=== PATIENT | female | born 1965 | race Caucasian/White ===

== ENCOUNTER → 2016-09-03 | Outpatient (CLI) | payer BC ==
[~2016-09-03] MED LIST: CYCLOBENZAPRINE10 MG PO; MULTIVITAMIN1 CTB PO; NAPROSYN500 MG PO; PRAVACHOL20 MG PO; PREDNISONE10 MG PO; PREDNISONE20 M1 PO; TOPROL XL25 MG PO; VITAMIN C1000 M2 PO
== END | disposition home or self-care (01) ==
LOC: MAMMO 16:09
DX: Z12.31 Encounter for screening mammogram for malignant neoplasm of breast (principal)

== ENCOUNTER → 2018-01-22 | Outpatient (CLI) | payer BC | END | disposition home or self-care (01) | LOC: MAMMO 07:39 | DX: Z12.31 Encounter for screening mammogram for malignant neoplasm of breast (principal) ==

== ENCOUNTER → 2018-03-27 | Day surgery (SDC) | payer BC ==
[~2018-03-27] VITALS: Ht 152.4 cm; Wt 72.6 kg
--- NOTE | ~2018-03-27 | PROC NOTE ---
[place], [place] PROCEDURE NOTE NAME: YARELY DUNHAM [facility] #: [id number] UNIT #: [id number] ROOM: DOCTOR: MELVI CAMPOVERDE MD BIRTHDATE: [birth year] DOS: 03/27/2018 PROCEDURE: 1. Esophagogastroduodenoscopy and biopsy. 2. Colonoscopy and polypectomy. INDICATIONS: GERD, diarrhea and colon cancer screening. An informed consent was obtained from the patient after indication of procedures, alternatives, and potential complications were explained to her. PROCEDURE MEDICATION: Sedation was administered by Anesthesiology Department. Scope used was upper endoscopy, Olympus diagnostic adult upper endoscope GIF-180, depth of insertion was to descending duodenum. With the colonoscopy, the scope used was Olympus pediatric colonoscope variable stiffness GIF-180, depth of insertion was to the cecum, which was identified by the usual landmarks, appendiceal orifice, ileocecal valve and triangular fold, in addition to transillumination in the right lower quadrant. FINDINGS: After adequate sedation, the patient was placed in left lateral decubitus position. Upper endoscopy was performed first. The scope was introduced under direct visualization through the upper esophageal sphincter into the esophagus. Esophageal mucosa showed evidence of erosive esophagitis grade 2 with no ulcers or strictures. Lower esophageal sphincter was identified at 36 cm from incisors. Stomach was then intubated. Gastric mucosa inspected. Severe gastritis was seen. No discrete ulcers or active bleeding. A JAYRO test was performed from the gastric antrum and body. Retroflexed views in the fundus showed a grade 1 sliding hiatal hernia. The pylorus was intubated easily. The duodenal bulb and descending duodenum were within normal range. The scope was then withdrawn after the stomach was decompressed. We then proceeded with the colonoscopy. Rectal examination showed a diminished sphincter tone and no external hemorrhoids. Scope was introduced into the rectum and then advanced to the cecum with no difficulty. The prep was adequate. A 6 mm proximal right transverse colon polyp was detected and was removed with a cold snare. The remaining colon mucosa appeared otherwise normal with no evidence of diverticula, ulcerations or obstructing lesions. The random biopsies were obtained from the right and left colon to rule out microscopic colitis. Retroflexed views in the rectum showed no evidence of internal hemorrhoids. The scope was then withdrawn after the rectum was decompressed. The patient tolerated the procedure well. IMPRESSION: 1. Moderate erosive esophagitis. 2. Small hiatal hernia. 3. Gastritis, JAYRO test performed. 4. Small transverse colon polyp, removed. 5. Normal colon mucosa otherwise, random biopsies obtained. PLAN: We will review the histopathology and JAYRO test results and treat the [place], [place] PROCEDURE NOTE NAME: YARELY DUNHAM UNIT #: [id number] ROOM: DOCTOR: GILLES DOVER,MELVI BIRTHDATE: [birth year] patient accordingly. Office followup will be scheduled in 2-3 weeks. The patient was advised to avoid aspirin and NSAIDs for the next 10 days. MELVI CAMPOVERDE MD CM:PROCNOTE:PROCEDURE NOTE [id number] MELVI CAMPOVERDE MD
[2018-03-27 07:17] VITALS: BP 116/73
[2018-03-27 08:43] VITALS: BP 103/57
[2018-03-27 08:58] VITALS: BP 119/77
[2018-03-27 09:13] VITALS: BP 127/57
== END | disposition home or self-care (01) ==
LOC: SDC 03-24 08:00
DX: K63.5 Polyp of colon (principal); K63.89 Other specified diseases of intestine; K29.70 Gastritis, unspecified, without bleeding; K44.9 Diaphragmatic hernia without obstruction or gangrene; K22.10 Ulcer of esophagus without bleeding; K21.9 Gastro-esophageal reflux disease without esophagitis; M19.90 Unspecified osteoarthritis, unspecified site; Z79.899 Other long term (current) drug therapy; Z80.0 Family history of malignant neoplasm of digestive organs; Z98.890 Other specified postprocedural states

== ENCOUNTER 2019-02-05 19:00 | Emergency (ER) | payer BC ==
[~2019-02-05] VITALS: Ht 152.4 cm; Wt 73.5 kg
[2019-02-05] MEDS ORDERED: CEFDINIR300 MG PO (19:31)
[2019-02-05] MEDS ORDERED: MEDROL DOSEPAK4 MG PO (19:46)
== END 2019-02-05 19:56 | disposition home or self-care (01) ==
LOC: ED 19:00
DX: H92.03 Otalgia, bilateral (principal); J32.9 Chronic sinusitis, unspecified; K08.89 Other specified disorders of teeth and supporting structures; Z79.899 Other long term (current) drug therapy; Z79.2 Long term (current) use of antibiotics

== ENCOUNTER 2019-05-08 14:51 | Emergency (ER) | payer BC ==
[~2019-05-08] VITALS: Ht 170.1 cm; Wt 81.6 kg
[~2019-05-08 14:51] MED LIST changes: +CEFDINIR300 MG PO; +MEDROL DOSEPAK4 MG PO
[2019-05-08 15:27] LABS: BASO # 0.1 10*3/uL (0.0-0.1); BASO % 0.6 % (0.0-1.0); EOS # 0.4 10*3/uL (0.0-0.4); EOS % 4.8 % (1.0-4.0); HEMATOCRIT 43.5 % (37.0-47.0); HEMOGLOBIN 14.6 g/dl (12.0-16.0); LYMPH # 2.7 10*3/uL (1.3-4.4); LYMPH % 34.4 % (27.0-41.0); MEAN CELL VOLUME 89.7 fl (81.0-99.0); MEAN CORPUSCULAR HGB 30.1 pg (27.0-31.0); MEAN CORPUSCULAR HGB CONC 33.6 g/dl (33.0-37.0); MEAN PLATELET VOLUME 10.4 fl (9.6-12.3); MONO # 0.8 10*3/uL (0.1-1.0); MONO % 10.6 % (3.0-9.0); NEUT # 3.9 10*3/uL (2.3-7.9); NEUT % 49.5 % (47.0-73.0); PLATELET COUNT AUTOMATED 226 10*3/uL (130-400); RED BLOOD COUNT 4.85 10*6/uL (4.10-5.10); RED CELL DISTRI WIDTH 12.5 % (0-14.5); WHITE BLOOD COUNT 7.9 10*3/uL (4.8-10.8)
[2019-05-08 15:37] LABS: INTERNATIONAL NORM RATIO 0.9 (2.0-3.5)
[2019-05-08 15:44] LABS: ALBUMIN 3.9 gm/dl (3.1-4.5); ALKALINE PHOSPHATASE 131 U/L (45-117); BUN 12 mg/dl (7-24); CHLORIDE 108 mmol/L (98-107); POTASSIUM 3.6 mmol/L (3.5-5.1); SGOT/AST 54 IU/L (3-35); SGPT/ALT 122 U/L (12-78); SODIUM 141 mmol/L (136-145); TOTAL PROTEIN 7.6 gm/dL (6.4-8.2)
[2019-05-08 15:48] LABS: TROPONIN I < 0.015 ng/ml (<0.045)
[2019-05-08] MEDS ORDERED: PRILOSEC20 M1 PO (17:26)
== END 2019-05-08 18:13 | disposition home or self-care (01) ==
LOC: ED 14:51
PROVIDERS: Emergency Medicine
DX: R07.89 Other chest pain (principal); K21.9 Gastro-esophageal reflux disease without esophagitis; Z79.899 Other long term (current) drug therapy; Z79.2 Long term (current) use of antibiotics

== ENCOUNTER → 2019-05-19 | Outpatient (CLI) | payer BC ==
[~2019-05-19] MED LIST changes: +PRILOSEC20 M1 PO
[2019-05-19 16:10] LABS: BILIRUBIN NEGATIVE (NEGATIVE); BLOOD TRACE-INTACT (NEGATIVE); CLARITY CLOUDY (CLEAR); COLOR YELLOW (YELLOW); GLUCOSE NEGATIVE (NEGATIVE); KETONE NEGATIVE (NEGATIVE); LEUKO ESTERASE 2+ (NEGATIVE); NITRITE NEGATIVE (NEGATIVE); UROBILINOGEN 0.2 E.U./dl (0.2-1.0)
[2019-05-19 16:15] LABS: BASO # 0.1 10*3/uL (0.0-0.1); BASO % 0.8 % (0.0-1.0); EOS # 0.3 10*3/uL (0.0-0.4); EOS % 3.3 % (1.0-4.0); HEMATOCRIT 43.3 % (37.0-47.0); HEMOGLOBIN 14.5 g/dl (12.0-16.0); LYMPH # 2.3 10*3/uL (1.3-4.4); LYMPH % 29.6 % (27.0-41.0); MEAN CELL VOLUME 90.6 fl (81.0-99.0); MEAN CORPUSCULAR HGB 30.3 pg (27.0-31.0); MEAN CORPUSCULAR HGB CONC 33.5 g/dl (33.0-37.0); MEAN PLATELET VOLUME 10.9 fl (9.6-12.3); MONO # 0.8 10*3/uL (0.1-1.0); MONO % 10.1 % (3.0-9.0); NEUT # 4.4 10*3/uL (2.3-7.9); NEUT % 55.9 % (47.0-73.0); PLATELET COUNT AUTOMATED 254 10*3/uL (130-400); RED BLOOD COUNT 4.78 10*6/uL (4.10-5.10); RED CELL DISTRI WIDTH 12.6 % (0-14.5); RETICULOCYTE % 1.52 % (0.50-2.50); WHITE BLOOD COUNT 7.8 10*3/uL (4.8-10.8)
[2019-05-19 16:17] LABS: WBC TNTC wbc/hpf (0-5)
[2019-05-19 16:47] LABS: ALBUMIN 3.7 gm/dl (3.1-4.5); ALKALINE PHOSPHATASE 128 U/L (45-117); BUN 12 mg/dl (7-24); CHLORIDE 107 mmol/L (98-107); CHOLESTEROL 170 mg/dL (<200); CREATININE 0.84 mg/dL (0.55-1.02); GAMMA GLUTAMYL TRANSPEPTIDASE 23 U/L (5-55); HDL CHOLESTEROL 40 mg/dl (40-60); IRON 58 ug/dL (50-170); LDL CHOLESTEROL 66 mg/dL (9-159); POTASSIUM 3.9 mmol/L (3.5-5.1); SGOT/AST 54 IU/L (3-35); SGPT/ALT 123 U/L (12-78); SODIUM 142 mmol/L (136-145); T3 UPTAKE 40 % (31-39); THYROXINE (T4) TOTAL 12.6 ug/dl (4.8-13.9); TOTAL IRON BINDING CAPACITY 342 ug/dl (250-450); TOTAL PROTEIN 7.5 gm/dL (6.4-8.2); TRIGLYCERIDES 321 mg/dl (<150); URIC ACID 6.2 mg/dL (2.6-6.0); VLDL CHOLESTEROL 64 mg/dL (6-40)
[2019-05-19 16:53] LABS: THYROID STIM HORMONE (HS) 0.075 uIU/ml (0.358-4.75)
[2019-05-19 17:25] LABS: FERRITIN 179.2 ng/mL (10.0-291.0); VITAMIN D, 25-HYDROXY 33.7 ng/mL (30-100)
[2019-05-20 08:08] LABS: RHEUMATOID ARTHRITIS FACTOR <10.0 IU/mL (0.0-13.9)
[2019-05-20 14:08] LABS: ANTI-DSDNA ANTIBODIES 096339 <1 IU/mL (0-9)
== END | disposition home or self-care (01) ==
LOC: LAB 15:40
PROVIDERS: Family Medicine
DX: E55.9 Vitamin D deficiency, unspecified (principal); R53.83 Other fatigue; R79.89 Other specified abnormal findings of blood chemistry

== ENCOUNTER → 2019-05-27 | Outpatient (CLI) | payer BC ==
--- NOTE | 2019-05-27 12:45 | NUR ---
INFORMED CONSENT SIGNED FOR CARDIOLYTE STRESS TEST WITH DR. SAPP. RESTING EKG, NSR, HR 74, BP 114/80. COMPLETED 8:00 OF NEEMA PROTOCOL STRESS TEST COMPLETING 2:00 STAGE III, 3.4MH/14% GRADE. PEAK HEART RATE OF 162 ACHIEVED WHICH IS 97% PREDICTED MAXIMUM AND A PEAK BP OF 160/20. PVC'S NOTED WITH NO ST CHANGES. TEST TERMINATED D/T FATIGUE. HAS A GOOD EXERCISE TOLERANCE. LAST RECOVERY HR 99, BP 138/70. WAITING NUCLEAR SCANNING IN STABLE CONDITION.
== END | disposition home or self-care (01) ==
LOC: CARD 00:11
DX: R07.89 Other chest pain (principal); R00.2 Palpitations; R53.83 Other fatigue

== ENCOUNTER → 2019-06-29 | Outpatient (CLI) | payer BC | END | disposition home or self-care (01) | LOC: US 09:03 | DX: D26.1 Other benign neoplasm of corpus uteri (principal); K76.0 Fatty (change of) liver, not elsewhere classified; J90 Pleural effusion, not elsewhere classified; R10.2 Pelvic and perineal pain ==

== ENCOUNTER → 2020-07-06 | Outpatient (CLI) | payer OTHER ==
[2020-07-06 16:32] LABS: BASO # 0.1 10*3/uL (0.0-0.1); BASO % 0.8 % (0.0-1.0); EOS # 0.3 10*3/uL (0.0-0.4); EOS % 3.6 % (1.0-4.0); HEMATOCRIT 43.9 % (37.0-47.0); LYMPH # 2.4 10*3/uL (1.3-4.4); LYMPH % 31.4 % (27.0-41.0); MEAN CELL VOLUME 88.5 fl (81.0-99.0); MEAN CORPUSCULAR HGB 29.8 pg (27.0-31.0); MEAN CORPUSCULAR HGB CONC 33.7 g/dl (33.0-37.0); MEAN PLATELET VOLUME 10.5 fl (9.6-12.3); MONO # 0.7 10*3/uL (0.1-1.0); MONO % 8.8 % (3.0-9.0); NEUT # 4.2 10*3/uL (2.3-7.9); NEUT % 55.3 % (47.0-73.0); PLATELET COUNT AUTOMATED 244 10*3/uL (130-400); RED BLOOD COUNT 4.96 10*6/uL (4.10-5.10); RED CELL DISTRI WIDTH 12.8 % (0-14.5); RETICULOCYTE % 1.17 % (0.50-2.50); WHITE BLOOD COUNT 7.6 10*3/uL (4.8-10.8)
[2020-07-06 16:37] LABS: BILIRUBIN Negative (Negative); BLOOD Negative (Negative); CLARITY Clear (Clear); COLOR Yellow (Yellow); GLUCOSE Negative (Negative); KETONE Negative (Negative); LEUKO ESTERASE 1+ (Negative); NITRITE Negative (Negative); SPECIFIC GRAVITY >= 1.030 (1.001-1.030); UROBILINOGEN 0.2 E.U./dl (0.0-1.0)
[2020-07-06 16:49] LABS: BACTERIA TRACE; EPITHELIAL CELLS 21-30
[2020-07-06 17:04] LABS: ALBUMIN 3.7 gm/dl (3.1-4.5); ALKALINE PHOSPHATASE 124 U/L (45-117); BUN 17 mg/dl (7-24); CHLORIDE 108 mmol/L (98-107); CHOLESTEROL 191 mg/dL (<200); CREATININE 0.79 mg/dL (0.55-1.02); GAMMA GLUTAMYL TRANSPEPTIDASE 17 U/L (5-55); HDL CHOLESTEROL 47 mg/dl (40-60); IRON 59 ug/dL (50-170); LDL CHOLESTEROL 100 mg/dL (9-159); SGOT/AST 30 IU/L (3-35); SGPT/ALT 63 U/L (12-78); SODIUM 143 mmol/L (136-145); TOTAL IRON BINDING CAPACITY 355 ug/dl (250-450); TOTAL PROTEIN 7.7 gm/dL (6.4-8.2); TRIGLYCERIDES 221 mg/dl (<150); VLDL CHOLESTEROL 44 mg/dL (6-40)
[2020-07-06 17:08] LABS: THYROID STIM HORMONE (HS) 0.025 uIU/ml (0.358-4.75)
[2020-07-06 17:32] LABS: VITAMIN D, 25-HYDROXY 34.1 ng/mL (30-100)
[2020-07-06 17:33] LABS: FERRITIN 97.8 ng/mL (10.0-291.0)
== END | disposition home or self-care (01) ==
LOC: LAB 16:09
PROVIDERS: ATTEND Family Medicine
DX: E78.5 Hyperlipidemia, unspecified (principal); R53.83 Other fatigue; R79.89 Other specified abnormal findings of blood chemistry; E55.9 Vitamin D deficiency, unspecified

== ENCOUNTER → 2022-01-29 | Outpatient (CLI) | payer OTHER | END | disposition home or self-care (01) | LOC: MAMMO 01-28 06:37 | PROVIDERS: ATTEND Family Medicine | DX: Z12.31 Encounter for screening mammogram for malignant neoplasm of breast (principal) ==

== ENCOUNTER → 2022-05-21 | Outpatient (CLI) | payer OTHER ==
[2022-05-21 16:32] LABS: BILIRUBIN Negative (Negative); BLOOD Negative (Negative); CLARITY Clear (Clear); COLOR Yellow (Yellow); GLUCOSE Negative (Negative); KETONE Negative (Negative); LEUKO ESTERASE 2+ (Negative); NITRITE Negative (Negative); PH 5.5 (4.5-8.0); SPECIFIC GRAVITY 1.015 (1.001-1.030); UROBILINOGEN 0.2 E.U./dl (0.0-1.0)
[2022-05-21 16:33] LABS: HEMATOCRIT 42.1 % (37.0-47.0); MEAN CELL VOLUME 89.2 fl (81.0-99.0); MEAN CORPUSCULAR HGB 29.9 pg (27.0-31.0); MEAN CORPUSCULAR HGB CONC 33.5 g/dl (33.0-37.0); MEAN PLATELET VOLUME 10.4 fl (9.6-12.3); PLATELET COUNT AUTOMATED 214 10*3/uL (130-400); RED BLOOD COUNT 4.72 10*6/uL (4.10-5.10); RED CELL DISTRI WIDTH 12.8 % (0-14.5); RETICULOCYTE % 1.28 % (0.50-2.50); WHITE BLOOD COUNT 8.1 10*3/uL (4.8-10.8)
[2022-05-21 16:41] LABS: RBC 0-2 rbc/hpf (0-2)
[2022-05-21 16:42] LABS: BACTERIA 1+
[2022-05-21 16:51] LABS: ALKALINE PHOSPHATASE 111 U/L (46-116); BUN 8 mg/dl (9-23); CHLORIDE 105 mmol/L (98-107); CHOLESTEROL 183 mg/dL (<200); GAMMA GLUTAMYL TRANSPEPTIDASE 21 U/L (0-73); LDL CHOLESTEROL 107 mg/dL (9-159); POTASSIUM 3.9 mmol/L (3.4-5.1); SGPT/ALT 44 U/L (10-49); T3 UPTAKE 21.8 % (22.4-36.7); THYROID STIM HORMONE (HS) 0.008 uIU/ml (0.550-4.780); THYROXINE (T4) TOTAL 10.9 ug/dl (4.5-10.9); TOTAL PROTEIN 7.1 gm/dL (6.0-8.0); TRIGLYCERIDES 174 mg/dl (<150); URIC ACID 5.8 mg/dL (3.1-7.8)
[2022-05-21 17:04] LABS: BASOPHILS 1 % (0-1); PLATELET SUFFICIENCY NORMAL (NORMAL); TOTAL CELLS COUNTED 100 #CELLS
[2022-05-21 17:15] LABS: VITAMIN D, 25-HYDROXY 27.5 ng/mL (30-100)
[2022-05-22 08:07] LABS: TOTAL PROTEIN, SERUM 6.7 g/dL (6.0-8.5)
[2022-05-22 14:07] LABS: A/G RATIO 1.2 (0.7-1.7); ALBUMIN 3.6 g/dL (2.9-4.4); ALPHA-1-GLOBULIN 0.2 g/dL (0.0-0.4); ALPHA-2-GLOBULIN 0.8 g/dL (0.4-1.0); ANTI-DSDNA ANTIBODIES <1 IU/mL (0-9); BETA GLOBULIN 1.2 g/dL (0.7-1.3); GAMMA GLOBULIN 0.9 g/dL (0.4-1.8); GLOBULIN, TOTAL 3.1 g/dL (2.2-3.9); M-SPIKE Not Observed g/dL (Not Observed)
== END | disposition home or self-care (01) ==
LOC: LAB 16:12
PROVIDERS: ATTEND Family Medicine
DX: R79.89 Other specified abnormal findings of blood chemistry (principal); R53.83 Other fatigue; E78.5 Hyperlipidemia, unspecified; E55.9 Vitamin D deficiency, unspecified

== ENCOUNTER → 2022-06-07 | Outpatient (CLI) | payer OTHER | END | disposition home or self-care (01) | LOC: MRI 00:58 | PROVIDERS: ATTEND Family Medicine | DX: J34.89 Other specified disorders of nose and nasal sinuses (principal); R51.9 Headache, unspecified; H53.40 Unspecified visual field defects ==

== ENCOUNTER → 2022-06-28 | Outpatient (CLI) | payer OTHER | END | disposition home or self-care (01) | LOC: US 14:37 | PROVIDERS: ATTEND Family Medicine | DX: E04.9 Nontoxic goiter, unspecified (principal); E07.9 Disorder of thyroid, unspecified ==

== ENCOUNTER 2023-03-05 15:02 | Emergency (ER) | payer OTHER ==
[~2023-03-05] VITALS: Ht 152.4 cm; Wt 70.8 kg
[2023-03-05 15:41] LABS: BASO % 0.3 % (0.0-1.0); EOS # 0.3 10*3/uL (0.0-0.4); EOS % 3.3 % (1.0-4.0); HEMATOCRIT 42.7 % (37.0-47.0); LYMPH # 2.6 10*3/uL (1.3-4.4); LYMPH % 29.4 % (27.0-41.0); MEAN CELL VOLUME 86.4 fl (81.0-99.0); MEAN CORPUSCULAR HGB 29.4 pg (27.0-31.0); MEAN PLATELET VOLUME 9.8 fl (9.6-12.3); MONO # 0.8 10*3/uL (0.1-1.0); MONO % 8.9 % (3.0-9.0); NEUT # 5.1 10*3/uL (2.3-7.9); NEUT % 57.9 % (47.0-73.0); PLATELET COUNT AUTOMATED 266 10*3/uL (130-400); RED BLOOD COUNT 4.94 10*6/uL (4.10-5.10); RED CELL DISTRI WIDTH 12.8 % (0-14.5); WHITE BLOOD COUNT 8.8 10*3/uL (4.8-10.8)
[2023-03-05 15:54] LABS: ACT PARTIAL THROMBO TIME 27.3 SECONDS (20.0-32.1)
[2023-03-05 16:03] LABS: ALKALINE PHOSPHATASE 123 U/L (46-116); BUN 13 mg/dl (9-23); CHLORIDE 107 mmol/L (98-107); LIPASE 58 U/L (12-53); POTASSIUM 4.4 mmol/L (3.4-5.1); SGPT/ALT 29 U/L (5-49); TOTAL PROTEIN 7.3 gm/dL (6.0-8.0)
== END 2023-03-05 17:54 | disposition home or self-care (01) ==
LOC: ED 15:02
PROVIDERS: Emergency Medicine
DX: R07.89 Other chest pain (principal); R00.2 Palpitations; Z98.890 Other specified postprocedural states

== ENCOUNTER → 2023-04-01 | Outpatient (CLI) | payer OTHER ==
[2023-04-01 17:10] LABS: T3 UPTAKE 29.9 % (22.4-36.7); THYROXINE (T4) TOTAL 10.9 ug/dl (4.5-10.9)
== END | disposition home or self-care (01) ==
LOC: LAB 16:17 → MAMMO 17:00
PROVIDERS: ATTEND Family Medicine
DX: Z12.31 Encounter for screening mammogram for malignant neoplasm of breast (principal); R79.89 Other specified abnormal findings of blood chemistry; R53.83 Other fatigue; E78.5 Hyperlipidemia, unspecified

== ENCOUNTER 2023-08-03 10:50 | Emergency (ER) | payer OTHER ==
[~2023-08-03] VITALS: Ht 152.4 cm; Wt 75.3 kg
[2023-08-03] MEDS ORDERED: PROPYLTHIOURACI50 M1 PO (11:31)
[2023-08-03] MEDS ORDERED: PROPRANOLOL HYD60 MG PO (11:32)
[2023-08-03] MEDS ORDERED: PREDNISONE10 MG PO (11:40)
[2023-08-03] MEDS ORDERED: methylPREDNISolone sod succ 125 MG VIAL IM ONE (11:40)
== END 2023-08-03 11:55 | disposition home or self-care (01) ==
LOC: ED 10:50
DX: L23.7 Allergic contact dermatitis due to plants, except food (principal); E03.9 Hypothyroidism, unspecified; Z98.890 Other specified postprocedural states

== ENCOUNTER → 2023-12-18 | Outpatient (CLI) | payer OTHER ==
[~2023-12-18] MED LIST changes: +PROPRANOLOL HYD60 MG PO; +PROPYLTHIOURACI50 M1 PO
[2023-12-18 16:54] LABS: T3 UPTAKE 26.6 % (22.4-36.7); THYROXINE (T4) TOTAL 10.1 ug/dl (4.5-10.9)
== END | disposition home or self-care (01) ==
LOC: LAB 16:12
PROVIDERS: ATTEND Family Medicine
DX: R79.89 Other specified abnormal findings of blood chemistry (principal); R53.83 Other fatigue